=== PATIENT | female | born 2005 | race Caucasian/White ===

== ENCOUNTER 2025-02-02 12:40 | Emergency (ER) | payer OTHER ==
[~2025-02-02] VITALS: Ht 170.2 cm; Wt 52.0 kg
[2025-02-02 12:46] VITALS: BP 112/67; PULSE 81; TEMP 98.3; O2SAT 99
[2025-02-02] MEDS ORDERED: ERYT1OIN6 RIGHTEYE (13:59)
--- NOTE | 2025-02-02 13:59 | Physician Documentation ---
History of Present Illness ~ Chief Complaint: Eye Pain Stated Complaint: "STYE IN EYE" Time Seen by MD: 13:56 OK to notify your PCP?: Yes Source: patient Mode of Arrival: POV Exam Limitations: no limitations HPI Reports having a painful stye to her right upper eyelid for the past week. She reports that she has been doing warm compresses at home without any relief. She denies any vision changes. Medication Reconciliation Allergies: Coded Allergies: No Known Allergies (Unverified , 02/02/25) Scheduled Erythromycin Base Opth. Ointment* (Erythromycin Opth. Ointment*), 1 APPLIC RIGHTEYE Q6HWA Review of Systems All Other Systems at this time: Reviewed and Negative Physical Exam Vital Signs: RN Vital Signs have been reviewed: Yes, Temperature: 98.3, Source: Oral, Heart Rate: 81, Respiratory Rate: 18, BP: 112/67, Pulse Oximetry: 99, Weight: 52.000 Oxygen Flow Rate: 0 Pulse Oximetry Reflects: adequate oxygenation Physical Exam General: Alert, no distress. HEENT: No injection, moist mucous membranes. Hordeolum present to right upper eyelid. No drainage from site. Neck: Full range of motion. Respiratory: No respiratory distress, equal chest rise and fall. Chest: No accessory muscle use. Cardiovascular: Regular rate and rhythm. Gastrointestinal: Nondistended. Extremities: Normal range of motion, no deformity. Neurologic: Oriented x4. Psychiatric: Normal mood and affect. Skin: Normal color, warm and dry. Progress Results/Orders Reviewed/noted all lab results: Yes Results/Orders Vital Signs 02/02/25 02/02/25 12:46 14:10 Temp 98.3 Pulse 81 Resp 18 16 B/P (MAP) 112/67 Pulse Ox 99 O2 Flow Rate 0 Medical Decision Making Additional information obtaine: family Findings Exam reveals a stye to the right upper eyelid. There does not appear to be any other signs of infection. She has been doing the warm compresses. Placed her o n erythromycin ointment. Changes. Ear Diff. Dx: Considerations: Include: Other Eye Diff. Dx: Considerations: Include: Corneal abrasion, Foreign body-corneal, Foreign body-intraocular, Subconjunctival hem, Uveitis Nose Diff. Dx: Considerations: Include: Other Tooth Diff. Dx: Considerations: Include: Other Throat Diff Dx: Considerations: Include: Other Departure Disposition: HOME / SELF CARE / HOMELESS Impression: Primary Impression: Hordeolum externum (stye) Condition: Stable Discharge Instructions: Sty Additional Instructions: Continue with warm compresses. Return back here for any new or worsening symptoms. You can use Tylenol and/or ibuprofen for pain relief. Follow up with the regular doctor within the next week if this is not resolve. Referrals: NO PRIMARY CARE PROVIDER (PCP) Prescriptions Erythromycin Base Opth. Ointment* (Erythromycin Opth. Ointment*) 1 Gm Tube 1 APPLIC RIGHTEYE Q6HWA, #1 EACH Prov: ALAINA MCCRARY 02/02/25 Education Educated: Patient Educated regarding: diagnosis, treatment, prognosis, need for follow up Additional Comment Medical Screen Exam This patient recieved a medical screening examination. After reviewing the individual's medical complaints with presenting symptoms and performing an appropriate physical examination, it was determined that no immediate life- threatening emergency medical condition is present. This individual is also not a women having contractions. Signature Scribe Signature: . Attestation: Scribed for Alaina Mccraryp by Alaina Victoria NP . 02/02/25 18:58 Parts of this note were created using [employer] voice recognition software program. While efforts were made to correct any mistakes made by this voice recognition software program, nonsensical phrases may remain in this note. In addition, there may be errors and syntax, grammar, content and spelling. ALAINA MCCRARY Feb 02, 2025 13:59
[2025-02-02 14:10] VITALS: RESP 16
== END 2025-02-02 14:15 | disposition home or self-care (01) ==
LOC: ER 12:43
DX: H00.011 Hordeolum externum right upper eyelid (principal)
CPT/HCPCS: 99283